=== PATIENT | female | born 2000 | race African-American/Black ===

== ENCOUNTER 2021-02-22 08:56 | Emergency (ER) | payer BC, OTHER ==
[~2021-02-22] VITALS: Ht 165.1 cm; Wt 77.1 kg
[~2021-02-22 08:56] MED LIST: TESSALON PERLE100 MG PO
[2021-02-22 09:12] LABS: URINE BLOOD NEGATIVE (Negative); URINE CLARITY CLOUDY; URINE COLOR YELLOW; URINE GLUCOSE-RANDOM* NEGATIVE (Negative); URINE KETONES 3+ (Negative); URINE LEUKOCYTES-REFLEX NEGATIVE (Negative); URINE NITRITE-REFLEX NEGATIVE (Negative); URINE PROTEIN (DIPSTICK) 1+ (Negative); URINE SPECIFIC GRAVITY >= 1.030 (1.005-1.035)
[2021-02-22] MEDS ORDERED: NOHOMEMEDICATIONS (09:12)
[2021-02-22 09:27] LABS: ICTOTEST (BILI CONFIRMATORY) Negative (Negative); URINE BILIRUBIN NEGATIVE (Negative); URINE REDUCING SUBSTANCE NEGATIVE
[2021-02-22 09:40] LABS: BASOPHILS 0.4 % (0.0-2.0); EOSINOPHILS 0.6 % (0.0-3.0); HEMOGLOBIN 13.2 gm/dL (12.0-15.0); LYMPHOCYTES 14.1 % (24.0-44.0); MCH 30.7 pg (26.0-34.0); MCHC 34.8 g/dL (28.0-37.0); MCV 88.4 fL (80.0-100.0); MONOCYTES 7.2 % (1.0-8.0); PLATELET COUNT 175 thou/uL (150-400); POLYS 77.7 % (36.0-66.0); RBC 4.29 mil/uL (4.20-5.00); RDW 13.1 % (10.5-14.5)
[2021-02-22 09:42] LABS: SQUAMOUS >10 Many /LPF (0-3)
[2021-02-22 09:44] LABS: CASTS None Seen /LPF (None Seen); CRYSTALS None Seen /LPF (None Seen); URINE RBC None Seen /HPF (NONE SEEN)
[2021-02-22 09:44] LABS: CREATININE 0.7 mg/dL (0.6-1.0); POTASSIUM 3.6 mmol/L (3.5-5.1)
[2021-02-22 09:45] LABS: URINE WBC-REFLEX None Seen /HPF (0-5)
[2021-02-22 09:51] LABS: ALBUMIN 3.3 g/dL (3.4-5.0); TOTAL BILIRUBIN 0.6 mg/dL (0.2-1.0); TOTAL PROTEIN 7.2 g/dL (6.4-8.2)
[2021-02-22] MEDS ORDERED: UNISOM25 MG PO (10:03)
[2021-02-22] MEDS ORDERED: VITAMIN B-625 MG PO (10:03)
[2021-02-22 11:46] VITALS: BP 108/76
== END 2021-02-22 11:46 | disposition home or self-care (01) ==
LOC: ER 08:56
PROVIDERS: Emergency Medicine
DX: O21.8 Other vomiting complicating pregnancy (principal); Z3A.01 Less than 8 weeks gestation of pregnancy